=== PATIENT | male | born 1970 | race Caucasian/White ===

== ENCOUNTER 2019-09-19 13:08 | Inpatient (IN) | payer OTHER ==
[~2019-09-19] VITALS: Ht 188 cm; Wt 122.5 kg
--- NOTE | 2019-09-19 13:20 | NUR ---
SE RECIBE PT EN AMBULANCIA, ACOMPANADO DE PARAMEDICOS PT REFIERE NEUMONIA. SE OBSERVA SOB, PT SAO2 98%, CANALIZADO EN HARIKAO LT.
[2019-09-19] MEDS ORDERED: VENLAFAXINE HCL75 M2 PO (13:21)
--- NOTE | 2019-09-19 14:03 | NUR ---
SE ORIENTA A PT SOBRE ORDENES MEDICAS EL CUAL REFIERE ENTENDER. SE LE COLECTAN MUESTRAS Y SE CANALIZA EN MANO LT BAJO MEDIDAS ASEPTICAS, PT TOLERA. SE LE REMUEVE VENOPUNCION DE PARAMEDICOS DEBIDO A QUE LA MISMA TENIA ANGIO FUERA. SE NOTIFICAN ABGS A TERAPIA RESPIRATORIA. SE LE REALIZAN BC Y SE MANTIENE CONECTADO A MONITOR CARDIACO Y OXIMETRIA DE PULSO.
--- NOTE | 2019-09-19 15:17 | NUR ---
SE RECIBE PTE DEL TURNO ANTERIOR, ALERTA Y ORIENTADO X 3 ESFERAS, EN CAMA NIVEL MAS BAJO, CORCORAN DE IDENTIFICACION Y BARANDAS SUPERIORES ELEVADAS POR PRECAUCION. CONECTADO A MONITOR CARDIACO Y OXIMETRIA DE PULSO. CON VENTURY MASK AL 50%, EL CUAL TOLERA SATURANDO 96%. H/L PATENTE Y SITA DE EDEMA O ERITEMA. PENDIENTE A CONSULTA CON DR Nakia NELSON.
[2019-09-19] MEDS ORDERED: NASAL MIST126 ML (17:31)
[2019-09-19] MEDS ORDERED: BIKTARVY 50-201 EACH PO (17:31)
== END 2019-09-20 09:37 | disposition left against medical advice (07) | DRG 202 ==
LOC: ER 13:08 → SEC-K 17:18 → MEDI 09-20 01:33 → SEC-K 09-20 01:56
PROVIDERS: ADMIT Specialist
PROC: BB24Y0Z Computerized Tomography (CT Scan) of Bilateral Lungs using Other Contrast, Unenhanced and Enhanced (ICD-10-PCS; principal; 2019-09-19)
PROC: 3E0F7GC Introduction of Other Therapeutic Substance into Respiratory Tract, Via Natural or Artificial Opening (ICD-10-PCS; 2019-09-19)
PROC: 4A033R1 Measurement of Arterial Saturation, Peripheral, Percutaneous Approach (ICD-10-PCS; 2019-09-19)
PROC: 8E0ZXY6 Isolation (ICD-10-PCS; 2019-09-19)
DX: J21.8 Acute bronchiolitis due to other specified organisms (principal); B20 Human immunodeficiency virus [HIV] disease; R59.0 Localized enlarged lymph nodes; F32.89 Other specified depressive episodes